=== PATIENT | female | born 1990 | race African-American/Black ===

== ENCOUNTER 2018-11-02 11:31 | Day surgery (SDC) | payer OTHER ==
[2018-11-02 12:06] VITALS: BP 107/59; TEMP 98.9; BMI 31.7
--- NOTE | 2018-11-02 12:23 | PDOC.LDHP ---
Labor and Delivery H&P Chief complaint: other (Pelvic pressure and urinary pressure) HPI: Patient of Dr Smith Here with CC of vaginal and urinary pressure Patient of Dr smith Time: 1215 Location: Triage HPI: 28 yo s/p 2 term SVDs, now at 27 weeks 4 days, with vaginal pressure but no real CTX. no VB, no LOF, no recent sexual activity. No trauma. Good FM. Just took the 3 hour GTT this last Wednesday- results pending. review of Systems: complete ROS completed and as per HPI Current gestational age (weeks): 27 (4 days) Dating criteria: last menstrual period Grav: 3 Para: 2 OB History Details: TSVD x 2 Current complications: none Abnormal US findings: No Past Medical History: Past HX PIH and GDM; 3 hr GTT results pending; Past HX anxiety and depression, does not take meds Current medications: pre- vitamins Previous surgical history: none Allergies/Adverse Reactions: Allergies Allergy/AdvReac Type Severity Reaction Status Date / Time No Known Allergies Allergy Unverified 11/02/18 12:06 Social history: none - Physical Exam Vital signs reviewed and normal: yes (107/59 98.9 80 18) General: NAD Heart: RRR Lungs: CTAB Abdomen: gravid Extremeties: no edema FHT: category 1 (FHTs reactive for EGA, no formal NST done as under 32 weeks) [place] contractions every: no real CTX - Assessment Vaginal and urinary "pressure" at 27 weeks but no contractions nor LOF; no past HX PTL - Plan Plan: observation in L&D (I have ordered a cath UA to assess for UTI, I have ordered FFN and transvaginal sono for cervical length. Follow for now. Clinically, I do not suspect PTL)
[2018-11-02 13:00] LABS: Bilirubin Negative (Negative); Blood, Urine Negative (Negative); Clarity TURBID (Clear); Glucose, Urine (Dipstick) Negative (Negative); Leukocyte Trace (Negative); Nitrite Negative (Negative); Protein, Urine (Dipstick) Negative (Neg-Trace); Specific Gravity, Urine 1.017 (1.002-1.036)
[2018-11-02 13:01] LABS: Bacteria/HPF None Seen HPF (None Seen); Hyaline Casts/LPF 4-6 HYALINE CAST LPF (0-3 Hyaline); Pathc Cast-AUWi Flag 1.45 (0-2.49); RBC/HPF None Seen HPF (0-3); Squamous Epithelial 0-3 HPF (0-3); WBC/HPF 0-3 HPF (0-3)
[2018-11-02 13:05] LABS: FFN Internal QC Analyzer PASS (PASS); FFN Internal QC Cassette PASS (PASS); Fetal Fibronectin Negative (Negative)
--- NOTE | 2018-11-02 13:10 | PDOC.EVN ---
Event Note - Event Note Event Note: FFN negative Cerrvix by trevor 5.2cm UA pending Patient again seen at bedside and doing well...she does have some anxiety issues , she will follow up with her MD. Await UA
[2018-11-02 13:20] LABS: Crystals/HPF 2+ AMORPH PHOS HPF (Negative); Urine Culture Reflex Yes Yes
--- NOTE | 2018-11-02 13:24 | PDOC.EVN ---
Event Note - Event Note Event Note: UA without evidence of overt UTI...urine culture reflexed to make sure. OK for outpatient care and primary MD can follow up culture of urine. UA with no bacteria seen.
--- NOTE | 2018-11-02 13:47 | ULT ---
LIMITED OB ULTRASOUND: History: Evaluation for cervical canal length. FINDINGS: heart rate is 149 beats/minute. The head is cephalic in location. The cervical canal length is 6 cm. IMPRESSION: Cervical canal length of 6 cm. POS: KRIS
== END 2018-11-02 13:50 | disposition home or self-care (01) ==
LOC: L&D/OP 11:31
PROVIDERS: ATTEND Family Medicine
DX: O99.89 Other specified diseases and conditions complicating pregnancy, childbirth and the puerperium (principal); R10.2 Pelvic and perineal pain; R10.30 Lower abdominal pain, unspecified; R19.7 Diarrhea, unspecified; O99.342 Other mental disorders complicating pregnancy, second trimester; F41.9 Anxiety disorder, unspecified; Z3A.27 27 weeks gestation of pregnancy; Z79.899 Other long term (current) drug therapy
CPT/HCPCS: 51701; 76815; 81001; 82731; 87086; 99283

== ENCOUNTER 2018-11-29 20:26 | Day surgery (SDC) | payer OTHER ==
[2018-11-29 20:53] VITALS: BP 115/58; TEMP 98.5; BMI 31.9
[2018-11-29] MEDS ORDERED: Lactated Ringer's 1,000 ML IV SCH (21:15)
--- NOTE | 2018-11-29 21:18 | PDOC.LDHP ---
Labor and Delivery H&P Chief complaint: contractions HPI: 28 y/o at 31w3d, patient of Dr. Smith, presents with ctx since about 6: 30pm. Denies VB, LOF, or decreased FM. ROS neg for HEENT, cv, pulm, gi, gu, neuro, psych, skin, musculoskeletal or constitutional symptoms other than mentioned above. OB History Details: 2 prior term SVDs Current complications: none Past Medical History: Anxiety and Depression Current medications: pre-magui vitamins Previous surgical history: none Allergies/Adverse Reactions: Allergies Allergy/AdvReac Type Severity Reaction Status Date / Time No Known Allergies Allergy Verified 11/29/18 20:47 Social history: none - Physical Exam Vital signs reviewed and normal: yes General: NAD, resting Lungs: nonlabored breathing Abdomen: gravid Extremeties: no edema FHT: category 1 (125, mod variability, + accels, single variable decel) [place] contractions every: irregular - Vaginal Exam cm dilated: 0 (med, posterior; unchanged after 2 hrs) Effacement: 0% Station: -3 - Assessment 28 y/o at 31w3d with no e/o PTL. status reassuring. - Plan -: D/c home with precautions. Advised to keep all appointments.
== END 2018-11-29 23:42 | disposition home or self-care (01) ==
LOC: L&D/OP 20:26
PROVIDERS: ATTEND Family Medicine
DX: O47.03 False labor before 37 completed weeks of gestation, third trimester (principal); O99.343 Other mental disorders complicating pregnancy, third trimester; F41.9 Anxiety disorder, unspecified; F32.9 Major depressive disorder, single episode, unspecified; Z3A.31 31 weeks gestation of pregnancy; Z79.899 Other long term (current) drug therapy
CPT/HCPCS: 96360; 99283

== ENCOUNTER 2019-01-15 14:15 | Inpatient (IN) | payer OTHER ==
[2019-01-15 14:58] VITALS: BMI 32.5
[2019-01-15] MEDS ORDERED: Morphine 4 MG/ML VIAL SLOW IVP SCH (17:45)
[2019-01-15] MEDS: Lactated Ringer's 1,000 ML IV SCH ×2 (17:51→19:17)
--- NOTE | 2019-01-15 18:41 | PDOC.FPROB ---
FMR OB H&P: HPI - History of Present Illness Chief Complaint: Contractions Indentification: 28 year old at 38.1 wks History of Present Illness: 28 year old at 38.1 wks presents with contractions since this AM q2-4 minutes. States she lost her mucous plug. Patient denies vaginal bleeding, vaginal discharge, LoF. Patient has history of chronic pain which started after delivery of her first child. She was reportedly on [place] for that pain. She stopped taking the R[place] once she found out she was . Primary Care Physician: Dr. Smith FMR OB H&P: Current - Care : 3 Para: 2001 Gestational age: 38.1 wks Due date: 01/28/2019 - OB Labs Blood type: B RH: positive Antibody Screen: negative HIV: negative RPR: negative HepBsAg: negative Rubella: immune Urine drug screen: negative Gonorrhea: negative Chlamydia: negative GBS: positive (GBS colonized) FMR OB H&P: History - Past Medical History PMH: Chronic low back pain since delivery of first ; previously on opiates for back pain but stopped taking them when she found out she was - OB History OB History: Hx gHTN in prior , patient not on ASA during this Hx of GDM - Surgical History Sx History: Denies - Social History Social History: Denies alcohol, tobacco, or drug use - Family History Family History: Family history of HTN FMR OB H&P: Medications - Current Home Medications: Medication Instructions Recorded Confirmed Type No Known 11/29/18 11/29/18 History Allergies/Adverse Reactions: Allergies Allergy/AdvReac Type Severity Reaction Status Date / Time No Known Allergies Allergy Verified 01/15/19 14:58 FMR OB H&P: ROS - Review of Systems General: denies: fever/chills, weight/appetite/sleep changes Eyes: denies: vision changes, scotomas ENT: denies: nasal congestion, rhinorrhea, sore throat Cardiovascular: denies: chest pain, palpitation, edema Respiratory: denies: cough, congestion, shortness of breath Gastrointestinal: denies: nausea, vomiting Genitourinary (Female): reports: polyuria, contractions. denies: dysuria, vaginal discharge, vaginal pain, vaginal bleeding, vaginal pressure Musculoskeletal: reports: pain, stiffness, tenderness Neurologic: denies: numbness, syncope, seizures Integumentary: denies: itching, rash Hematologic/Lymphatic: denies: prolonged or excessive bleeding Psychological: reports: depression, anxiety FMR OB H&P: Vital Signs - Maternal Vital signs: BP 130/79 Pulse 80 Afebrile - Heart Tones Baseline: 130 Variability: moderate Acceleration: absent Deceleration: early Category: category 1 [place] contractions every: Irregular FMR OB H&P: Physical Exam - Physical Exam General: NAD, awake, alert and oriented HEENT: MMM, grossly normal vision, grossly normal hearing Neck: supple Heart: RRR, normal S1/S2, no murmurs/rubs/gallops General: CTAB, no respiratory distress Abdomen: soft, gravid, non-tender Musculoskeletal: pulses present, FROM in all four extremities Neurological: no tremor, no focal deficit Skin: no rash, capillary refill <2 seconds Lymphatic: no unusual bruising or bleeding Psychiatric: intact recent and remote memory, good judgement and insight FMR OB H&P: A/P - Problem List (1) Term Current Visit: Yes Status: Acute Code(s): Z34.80 - ENCOUNTER FOR SUPRVSN OF NORMAL , UNSP TRIMESTER (2) GBS carrier Current Visit: Yes Status: Acute Code(s): Z22.330 - CARRIER OF GROUP B STREPTOCOCCUS (3) Chronic pain Current Visit: Yes Status: Acute Code(s): G89.29 - OTHER CHRONIC PAIN Disposition: 28 year old at 38.1 wks presents with contractions 1. TIUP - Complicated by chronic pain; not on opiates during - Rimmune, Rh positive - Cervical check /3 at 14:49 by nurse; no change after 2-3 hours, but patient in significant amount of pain. Given 4 mg IV morphine. Pain complicated by chronic pain for which patient was previously 2. GBS colonization - Will need Pen G ppx 3. Chronic pain - On opiates for chronic back pain since delivery of first child - Patient has not been on opiates since - Complicating picture; patient needed pain medication to control pain, given 4 mg IV morphine Dispo: Admit to L&D as chronic pain picture is complicating current labor picture. Plan to AROM and augment labor if necessary. Discussion: Date/Time: 01/15/191838 This H&P was discussed with Dr. Paige who agrees with the above documentation and plan. Signature: Nena Stinson, DO PGY-2
[2019-01-15] MEDS ORDERED: NS / Oxytocin 40 units/1000ml 1,000 ML IV PRN (18:42)
[2019-01-15] MEDS ORDERED: Butorphanol Tartrate 1 MG/ML VIAL SLOW IVP PRN (18:42)
[2019-01-15] MEDS ORDERED: Lidocaine 1% (PF) 30 ML VIAL SC PRN (18:42)
[2019-01-15] MEDS ORDERED: Acetaminophen 500 MG TAB PO PRN (18:42)
[2019-01-15] MEDS ORDERED: Ondansetron PF 4 MG/2 ML Vial IVP PRN ×2 (18:42→23:49)
[2019-01-15] MEDS ORDERED: Ibuprofen 800 MG TAB PO PRN (18:42)
[2019-01-15] MEDS ORDERED: Promethazine HCl 25 MG/ML VIAL IM PRN ×2 (18:42→23:49)
[2019-01-15] MEDS ORDERED: Lactated Ringer's 1,000 ML IV SCH (18:45)
[2019-01-15] MEDS ORDERED: Penicillin G Potassium 5 MILL.UNITS in Sodium Chloride 0.9% 100 ML IVPB SCH (19:00)
[2019-01-15 19:04] LABS: Hemoglobin 12.3 g/dL (12.0-16.0); Mean Corpuscular HGB CONC 33.8 g/dL (32.0-36.0); Mean Corpuscular Hemoglobin 28.2 pg (27.0-31.0); Mean Corpuscular Volume 83.2 fL (78.0-98.0); Mean Platelet Volume 9.4 fL (7.4-10.4); Platelet Count 257 thou/uL (130-400); RBC Distribution Width 12.4 % (11.5-14.5); Red Blood Cell (RBC) Count 4.36 mill/uL (4.20-5.40); White Blood Cell (WBC) Count 7.4 thou/uL (4.8-10.8)
[2019-01-15 19:42] LABS: HBSAg Index 0.28 S/CO (0-0.99); Hep B Surf Ag Non-Reactive S/CO (NonReactive); Syphilis Antibody Nonreactive (Nonreactive); Syphilis Antibody Index 0.04 S/CO (<1.00 Non-Reactive)
[2019-01-15] MEDS: NS w/ Oxytocin 10 units 500 ML IV SCH ×2 (21:32→21:37)
[2019-01-15] MEDS ORDERED: Penicillin G 2.5 MILL.units 2.5 MILL.UNITS in Premix Bag 1 BAG IVPB SCH (23:00)
[2019-01-15] MEDS ORDERED: Fentanyl 4 mcg/Bup 0.1% Cadd 100 ML ONE (23:10)
[2019-01-15] MEDS ORDERED: Lidocaine 1.5%/Epinephrine 1:200,000 5 ML AMPUL IJ ONE (23:27)
[2019-01-15] MEDS ORDERED: Fentanyl 4 mcg/Bupivacaine 0.1% Cassette 100 ML EPIDURAL SCH (23:45)
[2019-01-15] MEDS ORDERED: Communication Order-Pharmacy FS SCH (23:45)
[2019-01-15] MEDS ORDERED: Lactated Ringer's 500 ML IV PRN (23:49)
[2019-01-15] MEDS ORDERED: diphenhydrAMINE 50 MG/ML VIAL IVP PRN (23:49)
[2019-01-15] MEDS ORDERED: Acetaminophen 325 MG TAB PO PRN (23:49)
[2019-01-15] MEDS ORDERED: ePHEDrine/0.9% NaCl/PF SYRINGE 50 mg/10 ml SLOW IVP PRN (23:49)
[2019-01-15] MEDS ORDERED: Naloxone HCl 0.4 mg/ml Vial IVP PRN ×2 (23:49)
[2019-01-15] MEDS ORDERED: Eucerin (Mineral Oil/Petrolatum,White) 30 gm Jar TOP PRN (23:49)
[2019-01-16] MEDS: Lactated Ringer's 1,000 ML IV SCH (00:07)
[2019-01-16] MEDS ORDERED: NS / Oxytocin 40 units/1000ml 1,000 ML ONE (01:59)
[2019-01-16] MEDS ORDERED: diphenhydrAMINE 25 MG CAP PO PRN (02:38)
[2019-01-16] MEDS ORDERED: Ondansetron PF 4 MG/2 ML Vial IVP PRN (02:38)
[2019-01-16] MEDS ORDERED: Lanolin Ointment 7 GM TUBE TOP PRN (02:38)
[2019-01-16] MEDS ORDERED: NS / Oxytocin 40 units/1000ml 1,000 ML IV SCH (02:38)
[2019-01-16] MEDS ORDERED: Benzocaine-Menthol 82.5 ML CAN TOP PRN (02:38)
[2019-01-16] MEDS ORDERED: Milk Of Magnesia 30 ML UDCUP PO PRN (02:38)
[2019-01-16] MEDS ORDERED: Bisacodyl 10 MG SUPP PR PRN (02:38)
[2019-01-16] MEDS: HYDROcodone/Acetaminophen 5/325 mg Tablet PO PRN ×4 (03:48→22:57)
[2019-01-16] MEDS: Ibuprofen 800 MG TAB PO SCH ×4 (03:53→22:55)
[2019-01-16] MEDS: Ferrous Sulfate 325 MG TAB PO SCH ×2 (07:33→17:25)
[2019-01-16] MEDS: Docusate Calcium (SURFAK) 240 MG CAP PO SCH ×2 (07:48→22:55)
[2019-01-16] MEDS: Prenatal Vitamin 1 TAB PO SCH (07:48)
[2019-01-17] MEDS: Ibuprofen 800 MG TAB PO SCH (05:56)
[2019-01-17 08:17] VITALS: BP 140/81; TEMP 98.2
[2019-01-17] MEDS: Ferrous Sulfate 325 MG TAB PO SCH (09:54)
[2019-01-17] MEDS: Docusate Calcium (SURFAK) 240 MG CAP PO SCH (10:01)
[2019-01-17] MEDS: Prenatal Vitamin 1 TAB PO SCH (10:02)
== END 2019-01-17 13:15 | disposition home or self-care (01) | DRG 807 ==
LOC: L&D/OP 14:15 → L&D 19:45 → 3SW 01-16 03:43
PROVIDERS: ADMIT Obstetrics & Gynecology; ATTEND Obstetrics & Gynecology
PROC: 10E0XZZ Delivery of Products of Conception, External Approach (ICD-10-PCS; principal; 2019-01-16)
PROC: 10907ZC Drainage of Amniotic Fluid, Therapeutic from Products of Conception, Via Natural or Artificial Opening (ICD-10-PCS; 2019-01-16)
DX: O99.824 Streptococcus B carrier state complicating childbirth (principal); Z37.0 Single live birth; Z3A.38 38 weeks gestation of pregnancy; O99.89 Other specified diseases and conditions complicating pregnancy, childbirth and the puerperium; G89.29 Other chronic pain; O69.81X0 Labor and delivery complicated by cord around neck, without compression, not applicable or unspecified
CPT/HCPCS: 36415; 51702; 85027; 86780; 86850; 86900; 86901; 87340; 99285; J0595; J2001; J2270; J2540; J3490; J7050

== ENCOUNTER 2021-09-16 11:09 | Emergency (ER) | payer OTHER, SELFPAY ==
[2021-09-16] MEDS ORDERED: cefTRIAXone\\ROCEPHIN 1 GM VIAL ONE (11:37)
[2021-09-16] MEDS ORDERED: Lidocaine 1% w/Epinephrine 1:100K 20 ML VIAL ONE (11:37)
[2021-09-16] MEDS ORDERED: Ketorolac Tromethamine 30 MG/ML VIAL ONE ×2 (11:37→11:40)
== END 2021-09-16 12:10 | disposition home or self-care (01) ==
LOC: ERS 11:09
DX: K04.7 Periapical abscess without sinus (principal)
CPT/HCPCS: 96372; 99282; J0696; J1885